=== PATIENT | male | born 1985 | race Caucasian/White ===

== ENCOUNTER 2019-11-23 23:29 | Emergency (ER) | payer OTHER ==
--- NOTE | 2019-11-23 23:55 | ERPHSYRPT ---
- History of Present Illness Time Seen by Provider: 11/23/19 23:40 Source: patient Exam Limitations: no limitations Physician History: Patient is a 34-year-old male presents to our ED for group home medical clearance. Patient was reportedly sitting in his vehicle. He told police that he snorted 3 lines of cocaine at around 11 PM. Patient asymptomatic. No chest pain or shortness of breath. Because of the history patient was brought in for medical clearance. Patient currently asymptomatic. EKG is negative for acute changes. No ischemic changes. Patient denies nausea or vomiting. No diaphoresis. No trauma. No fever. No shortness of breath. Patient has done cocaine in the past. Patient did not do any more cocaine than what he normally does in the past. Patient voices no other complaints at this time. Timing/Duration: today Severity: mild Modifying Factors: Improves With: nothing Associated Symptoms: denies symptoms, nausea - Review of Systems Constitutional: No Symptoms, No Fever, No Chills Eyes: No Symptoms Ears, Nose, & Throat: No Symptoms Respiratory: No Symptoms, No Cough, No Dyspnea Cardiac: No Symptoms, No Chest Pain, No Edema, No Syncope Abdominal/Gastrointestinal: No Symptoms, No Abdominal Pain, No Nausea, No Vomiting, No Diarrhea Genitourinary Symptoms: No Symptoms, No Dysuria Musculoskeletal: No Symptoms, No Back Pain, No Neck Pain Skin: No Symptoms, No Rash Neurological: No Symptoms, No Dizziness, No Focal Weakness, No Sensory Changes Psychological: No Symptoms Endocrine: No Symptoms Hematologic/Lymphatic: No Symptoms Immunological/Allergic: No Symptoms All Other Systems: Reviewed and Negative - Past Medical History Neurological History: No Pertinent History ENT History: No Pertinent History Cardiac History: No Pertinent History Respiratory History: No Pertinent History Endocrine Medical History: No Pertinent History Musculoskeletal History: Arthritis GI Medical History: No Pertinent History History: No Pertinent History Psycho-Social History: No Pertinent History - Past Surgical History Past Surgical History: Yes Cardiac: No Pertinent History Respiratory: No Pertinent History Gastrointestinal: No Pertinent History Genitourinary: No Pertinent History Musculoskeletal: No Pertinent History Male Surgical History: No Pertinent History Other Surgical History: Broke bilateral wrist and had orthopedic surgery. Nose Surgery - Social History Drug Use: cocaine - Nursing Vital Signs Nursing Vital Signs: Initial Vital Signs Temperature 97.9 F 11/23/19 23:37 Pulse Rate 130 H 11/23/19 23:37 Respiratory Rate 18 11/23/19 23:37 Blood Pressure 168/98 11/23/19 23:37 O2 Sat by Pulse Oximetry 98 11/23/19 23:37 Pain Scale Pain Intensity 0 - Physical Exam General Appearance: no apparent distress, alert Eye Exam: PERRL/EOMI, eyes nml inspection Ears, Nose, Throat Exam: normal ENT inspection, TMs normal, pharynx normal, moist mucous membranes Neck Exam: normal inspection, non-tender, supple, full range of motion Respiratory Exam: normal breath sounds, lungs clear, No respiratory distress Cardiovascular Exam: regular rate/rhythm, normal heart sounds, normal peripheral pulses Gastrointestinal/Abdomen Exam: soft, normal bowel sounds, No tenderness, No mass Rectal Exam: deferred Back Exam: normal inspection, normal range of motion, No CVA tenderness, No vertebral tenderness Extremity Exam: normal inspection, normal range of motion, pelvis stable Neurologic Exam: alert, oriented x 3, cooperative, normal mood/affect, nml cerebellar function, nml station & gait, sensation nml, No motor deficits Skin Exam: normal color, warm, dry, No rash Lymphatic Exam: No adenopathy SpO2 Interpretation: normal SpO2: 98 O2 Delivery: Room Air - Course Nursing assessment & vital signs reviewed: No EKG Interpreted by Me: RATE ([id number]), Sinus Rhythm, Left Palmer Deviation, NORMAL INTERVALS - Progress Progress: unchanged Progress Note: 11/24/19 00:03 Patient reassessed. He remains asymptomatic. Patient medically cleared for group home. No indication for further work-up or evaluation at this time. 11/24/19 00:03 Counseled pt/family regarding: drug and/or alcohol abuse, diagnosis, need for follow-up - Departure Departure Disposition: Group Home/Custodial Clinical Impression: Medical clearance for incarceration, Cocaine abuse Condition: Stable Critical Care Time: No Referrals: JJ BHAKTA [ACTIVE STAFF] - Additional Instructions: Discharge/Care Plan CLAUDIA SPAIN was seen on 11/23/19 in the Emergency Room. The patient was counseled regarding Diagnosis,Lab results, Imaging studies, need for follow up and when to return to the Emergency Room. Prescriptions given: Discharge Note I have spoken with the patient and/or caregivers. I have explained the patient' s condition, diagnosis and treatment plan based on the information available to me at this time. I have answered the patient's and/or caregiver's questions and addressed any concerns. The patient and/or caregivers have as good understanding of the patient's diagnosis, condition and treatment plan as can be expected at this point. The vital signs have been stable. The patient's condition is stable and appropriate for discharge from the emergency department. The patient will pursue further outpatient evaluation with the primary care physician or other designated or consulting physician as outlined in the discharge instructions. The patient and/or caregivers are agreeable to this plan of care and follow-up instructions have been explained in detail. The patient and/or caregivers have received these instruction. The patient/and or caregivers are aware that any significant change in condition or worsening of symptoms should prompt an immediate return to this or the closest emergency department or call 911.
[2019-11-24 00:37] LABS: Amphetamine,Urine NEGATIVE (NEGATIVE); Barbiturate,Urine NEGATIVE (NEGATIVE); Benzodiazepine,Urine NEGATIVE (NEGATIVE); Cocaine,Urine POSITIVE (NEGATIVE); Methadone,Urine NEGATIVE (NEGATIVE); Opiate,Urine NEGATIVE (NEGATIVE); PCP,Urine NEGATIVE (NEGATIVE); THC,Urine NEGATIVE (NEGATIVE)
[2019-11-24 00:45] VITALS: BP 165/104; PULSE 111; O2SAT 97
== END 2019-11-24 00:52 | disposition home or self-care (01) ==
LOC: ED 23:29 → EEVIPCON 23:29 → ED 11-24 00:52
DX: Z02.89 Encounter for other administrative examinations (principal); F14.10 Cocaine abuse, uncomplicated
CPT/HCPCS: 80307; 99283